=== PATIENT | female | born 1975 | race Hispanic/Latino ===

== ENCOUNTER → 2020-01-21 | Outpatient (CLI) | payer SELFPAY ==
--- NOTE | 2020-01-22 20:18 | US ---
EXAM DESCRIPTION: Abdomen,Complete: Ultrasound. CLINICAL HISTORY: 44 years Female R10.9. Prior left nephrectomy. COMPARISON: None Available. TECHNIQUE: Transabdominal scanning: grayscale and Doppler modes. FINDINGS: Gallbladder: Normal size. 10.8 x 6.4 mm echogenic structure on the free wall of the gallbladder without shadowing and not moving with patient changing position. No fluid around the gallbladder. No wall thickening. 1.8 mm. Non-tender with transducer pressure. Common bile duct: caliber 9.4-9.7 mm which is dilated. Liver: normal echogenicity; contour liver capsule smooth where seen. No fluid around the liver. Intrahepatic biliary ducts normal caliber. Doppler hepatopedal flow and normal caliber portal vein 10.5 mm.. Long axis right lobe 15.0 Pancreas: normal size and echogenicity. Duct not seen. Complete abdominal aorta: Normal caliber from the proximal segment to the distal bifurcation.. IVC: visualized and normal caliber. Right kidney: long axis measures 12.7 cm; volume 201.3 mL. Cortical echogenicity is increased but less than the liver. Normal cortical thickness. No echogenic stones; no hydronephrosis. Left kidney: Surgically absent. No fluid or soft tissue mass in the left renal fossa. Spleen: Normal. No focal lesions.. 6.4 cm long axis. Other: None. IMPRESSION: 1. Gallbladder with prominent but no definite stones or sludge. No wall thickening, wall fluid, or tenderness. Common bile duct dilated. Consider radionuclide hepatobiliary imaging and evaluation of gallbladder ejection fraction. 2. Liver and pancreas are negative. Pancreatic duct not seen. Spleen is small. 3. Right kidney is negative except increased echogenicity of the cortex but no cortical thinning. Abdominal aorta and IVC are normal caliber. No fluid or soft tissue mass in the left renal fossa. Electronically signed by: Pineda Mariee MD 01/22/2020 8:16 PM [employer]
== END ==
LOC: US 15:02
PROVIDERS: ATTEND Nurse Practitioner Family
DX: K82.9 Disease of gallbladder, unspecified (principal); R10.31 Right lower quadrant pain